=== PATIENT | female | born 1960 | race Caucasian/White ===

== ENCOUNTER → 2017-02-13 | Outpatient (CLI) | payer BC ==
[~2017-02-13] MED LIST: ASPIRIN 32325 MG/TAB PO; CARAFATE 1GM1 G PO; CEPHALEXIN500 M1 PO; CIPRO 500MG TA500 MG PO; Colace PO; FERROUS SU325 MG/TAB PO; FLEXERIL 1010 MG/TAB PO; MIRALAX PA17 GM/Dose PO; MONODOX100 PO; MORPHINE 1515 MG/TAB PO; MS CONTIN 115 MG/TAB PO; NEURONTIN400 MG/CAP PO; PRILOSEC 20MG20 MG PO; PROTONIX 40MG T40 MG PO; SYNTHROID0.175 MG PO; TENORMIN 2525 MG/TAB PO; TYLENOL 325MG325 MG PO; VENTOLIN0.09 MG IH; ZOCOR 20MG20 MG PO; ZOFRAN INJ4 MG/2 ML IV
== END ==
LOC: BHSO 10:00
DX: F33.1 Major depressive disorder, recurrent, moderate (principal)

== ENCOUNTER → 2017-03-18 | Outpatient (CLI) | payer BC | LOC: BHSO 11:11 | DX: F33.1 Major depressive disorder, recurrent, moderate (principal) ==

== ENCOUNTER → 2017-04-15 | Outpatient (CLI) | payer BC | LOC: BHSO 11:04 | DX: F33.1 Major depressive disorder, recurrent, moderate (principal) ==

== ENCOUNTER → 2017-05-27 | Outpatient (CLI) | payer BC | LOC: BHSO 10:53 | DX: F33.1 Major depressive disorder, recurrent, moderate (principal) ==

== ENCOUNTER → 2017-06-10 | Outpatient (CLI) | payer BC | LOC: BHSO 12:54 | DX: F33.1 Major depressive disorder, recurrent, moderate (principal) ==

== ENCOUNTER → 2017-07-09 | Outpatient (CLI) | payer BC | LOC: BHSO 12:47 | DX: F33.1 Major depressive disorder, recurrent, moderate (principal) ==